=== PATIENT | female | born 1980 | race Caucasian/White ===

== ENCOUNTER 2020-09-23 11:29 | Emergency (ER) | payer SELFPAY ==
[2020-09-23 11:35] VITALS: BP 126/92; PULSE 103; RESP 16; TEMP 36.8; O2SAT 98; BMI 27.3
--- NOTE | 2020-09-23 11:41 | XRR_ITS ---
PROCEDURE INFORMATION: Exam: XR Chest, 1 View Exam date and time: 09/23/2020 11:42 AM Age: 39 years old Clinical indication: Other: Overdose; Additional info: Hypoxia TECHNIQUE: Imaging protocol: XR of the chest Views: 1 view. COMPARISON: No relevant prior studies available. FINDINGS: Lungs: Unremarkable. No consolidation. Pleural space: Unremarkable. No pleural effusion. No pneumothorax. Heart/Mediastinum: Unremarkable. No cardiomegaly. Bones/joints: Unremarkable. XR/XR chest 1V portable [id number] IMPRESSION: No acute findings.
--- NOTE | 2020-09-23 11:43 | ED_ITS ---
HPI - Overdose General: Chief Complaint: Overdose Stated Complaint: HEROIN OVERDOSE Time Seen by Provider: 09/23/20 11:32 History of Present Illness: HPI Narrative: 39-year-old patient [place]. She had evidently been wandering. Upon first responders arrival, she became essentially nonresponsive, turned blue, and stopped spontaneous respirations. She was bagged by first responders until EMS got there. First responders gave 4 mg of intranasal Narcan, and by the time EMS arrived, she began to arouse spontaneously. She required no further oxygen after becoming alert. Vital signs were stable. She did complain of some nausea which was resolved with Zofran in route. She essentially has no complaints currently. This is not the first time she has used, but she claims this is the first time she has had to be revived from overdose. Substance use was heroin she states. She also states she had 2 vodka shooters this morning. complaint: accidental overdose Onset (ago): hour(s) Review of Systems Const: Denies: fever(s) or chills Eyes: Denies: blurry vision ENMT: Denies: odynophagia, swelling of lips/tongue or sinus pain Card: Denies: chest pain, palpitations or irregular heart rhythm Resp: Denies: dyspnea, productive cough, non-productive cough or wheezing GI: Reports: nausea; Denies: abdominal pain or vomiting : Denies: dysuria or hematuria Musc: Denies: neck pain, back pain or joint warmth Skin/Breast: Denies: rash or erythema Neuro: Denies: headache(s), dizziness, vertigo or seizure-like activity Psych: Denies: anxiety Physical Exam Const: GENERAL APPEARANCE: well developed ORIENTATION/CONSCIOUSNESS: Yes oriented to person, Yes oriented to place and Yes oriented to time HENMT: COMMON NORMALS: normocephalic, external ears normal and Normal external nose present HEAD & SCALP: normocephalic FACE & SINUS: normal facial exam NOSE: Normal external nose present and No nasal discharge present EXTERNAL EAR: Yes external ears normal MOUTH: tongue normal TEETH & GINGIVA: no abnormal tooth and associated gingiva THROAT: posterior oropharynx normal; no peritonsillar mass Eye: COMMON NORMALS: Equal, round and reactive pupils present, EOMs intact bilaterally and conjunctivae normal EYELID: eyelids normal CONJUNCTIVA: Yes conjunctivae normal PUPIL: Yes Equal, round and reactive pupils present Neck/C-Spine: GENERAL: No tracheal deviation Chest: COMMONS NORMALS: normal inspection of the chest CHEST: No tenderness Resp: COMMON NORMALS: clear to auscultation bilaterally EFFORT & INSPECTION: No tachypneic, No respiratory distress, No retractions, No uses accessory muscles and No tracheal deviation AUSCULTATION: clear to auscultation bilaterally, no rhonchi, no wheezes and lung sounds not diminished Cardio: COMMON NORMALS: regular rate and regular rhythm RATE: regular rate RHYTHM: regular rhythm HEART SOUNDS: no murmurs PERIPHERAL PULSES: radial pulses present GI: INSPECTION: No abdominal distension AUSCULTATION: No Hyperactive bowel sounds present and No Hypoactive bowel sounds present PALPATION: No Guarding due to palpation present (GI) and No Rigid due to palpation PERCUSSION: no dullness to percussion and no tympanic to percussion Neuro: SENSORIUM/ORIENTATION: Yes oriented to person, Yes oriented to place and Yes oriented to time Psych: COMMON NORMALS: mental status grossly normal Skin: COMMON NORMALS: no rashes or lesions noted GENERAL SKIN EXAM: no rashes or lesions noted Course Vital Signs: Vital signs: Vital Signs Temperature 98.2 F 09/23/20 11:35 Pulse Rate 115 H 09/23/20 12:40 Respiratory Rate 27 H 09/23/20 12:40 Blood Pressure 137/91 09/23/20 12:40 Pulse Oximetry 100 09/23/20 12:40 MDM - Overdose MDM Narrative: Medical decision making narrative: 39-year-old female who presented after heroin overdose. She is awake alert and talking at this point. Her vital signs were stable. Labs were drawn, and she was getting some IV fluid. She had a visitor coming, and she eloped from the ER with the visitor without completion of her service. In fact, she left with the IV in her arm. This of course is of great concern considering she came in with a heroin overdose. We have called the local police department, and ask them to go and check on her, and make sure that the IV has been removed appropriately. She was also positive for amphetamines on the drug screen. She obviously eloped before she had a chance to sign AMA papers, and before it could be explained to her why she should not leave. Lab Data: Labs: Lab Results 09/23/20 09/23/20 09/23/20 Range/Units 12:25 12:25 12:25 WBC Corrected WBC RBC Hgb Hct MCV MCH MCHC RDW Plt Count MPV Gran % Neut % (Auto) Lymph % (Auto) Baldwin % (Auto) Eos % (Auto) Baso % (Auto) Neut # (Auto) Lymph # (Auto) Baldwin # (Auto) Eos # (Auto) Baso # (Auto) Absolute Gran (aut o) Nucleated RBC % (a uto) Nucleated RBCs # Sodium (136-145) mmol/L Potassium (3.5-5.1) mmol/L Chloride (98-107) mmol/L Carbon Dioxide (22-29) mmol/L Anion Gap (5-19) BUN (6-20) mg/dL Creatinine (0.5-0.9) mg/dL GFR Calculation (90-130) mL/min Glucose (65-115) mg/dL Total Bilirubin (0.15-1.2) mg/dL Alkaline Phosphata se (35-105) IU/L Total Protein (6.6-8.7) g/dL Albumin (3.5-5.2) g/dL Globulin (1.3-4.6) g/dL HCG, Qual Negative (Negative) Urine Color Yellow (Yellow) Urine Appearance Cloudy (CLEAR) Urine pH 6.0 (5-7) Ur Specific Gravit y 1.015 (1.005-1.030) Urine Protein 1+ H (Negative) Urine Glucose (UA) Norm (Normal) Urine Ketones Negative (Negative) Urine Blood 2+ H (Negative) Urine Nitrate Negative (Negative) Urine Bilirubin Neg (Negative) Urine Urobilinogen 1 H (Negative) mg/dL Ur Leukocyte Lyn ase Negative (Negative) Urine RBC 5-10 H (0-2) /hpf Urine WBC 10-15 H (0-5) /hpf Ur Squamous Epith Cells 0-4 H (0-5) /hpf Amorphous Sediment Not Reportable Urine Bacteria 3+ H (NONE) /hpf Urine Mucus Trace /hpf Urine Opiates Scre en Positive H (Negative) ng/mL Ur Barbiturates Sc reen Negative (Negative) ng/mL Ur Phencyclidine S crn Negative (Negative) ng/mL Ur Amphetamines Sc reen Positive H (Negative) ng/mL U Benzodiazepines Scrn Negative (Negative) ng/mL Urine Cocaine Scre en Negative (Negative) ng/mL U Marijuana (THC) Screen Negative (Negative) ng/mL 09/23/20 09/23/20 Range/Units 12:35 12:35 WBC Cancelled Corrected WBC Cancelled RBC Cancelled Hgb Cancelled Hct Cancelled MCV Cancelled MCH Cancelled MCHC Cancelled RDW Cancelled Plt Count Cancelled MPV Cancelled Gran % Cancelled Neut % (Auto) Cancelled Lymph % (Auto) Cancelled Baldwin % (Auto) Cancelled Eos % (Auto) Cancelled Baso % (Auto) Cancelled Neut # (Auto) Cancelled Lymph # (Auto) Cancelled Baldwin # (Auto) Cancelled Eos # (Auto) Cancelled Baso # (Auto) Cancelled Absolute Gran (aut o) Cancelled Nucleated RBC % (a uto) Cancelled Nucleated RBCs # Cancelled Sodium 138 (136-145) mmol/L Potassium 4.0 (3.5-5.1) mmol/L Chloride 104 (98-107) mmol/L Carbon Dioxide 23 (22-29) mmol/L Anion Gap 15.0 (5-19) BUN 8 (6-20) mg/dL Creatinine 0.6 (0.5-0.9) mg/dL GFR Calculation 111.3 (90-130) mL/min Glucose 90 (65-115) mg/dL Total Bilirubin 0.2 (0.15-1.2) mg/dL Alkaline Phosphata se 67 (35-105) IU/L Total Protein 7.1 (6.6-8.7) g/dL Albumin 3.5 (3.5-5.2) g/dL Globulin 3.6 (1.3-4.6) g/dL HCG, Qual (Negative) Urine Color (Yellow) Urine Appearance (CLEAR) Urine pH (5-7) Ur Specific Gravit y (1.005-1.030) Urine Protein (Negative) Urine Glucose (UA) (Normal) Urine Ketones (Negative) Urine Blood (Negative) Urine Nitrate (Negative) Urine Bilirubin (Negative) Urine Urobilinogen (Negative) mg/dL Ur Leukocyte Lyn ase (Negative) Urine RBC (0-2) /hpf Urine WBC (0-5) /hpf Ur Squamous Epith Cells (0-5) /hpf Amorphous Sediment Urine Bacteria (NONE) /hpf Urine Mucus /hpf Urine Opiates Scre en (Negative) ng/mL Ur Barbiturates Sc reen (Negative) ng/mL Ur Phencyclidine S crn (Negative) ng/mL Ur Amphetamines Sc reen (Negative) ng/mL U Benzodiazepines Scrn (Negative) ng/mL Urine Cocaine Scre en (Negative) ng/mL U Marijuana (THC) Screen (Negative) ng/mL Discharge Plan Discharge Patient Disposition: Left Against Medical Advice Clinical Impression: Drug overdose Qualifiers: Encounter type: initial encounter Injury intent: accidental or unintentional Qualified Code(s): T50.901A - Poisoning by unspecified drugs, medicaments and biological substances, accidental (unintentional), initial encounter Condition: Stable Coding Level of Care Code ED [employer] Administrator for Denis Benjamin Exam Comprehensive
[2020-09-23] MEDS: sodium chloride 0.9% 1,000 ML 999 ML IV (12:38)
[2020-09-23 12:40] VITALS: BP 137/91; PULSE 115; RESP 27; O2SAT 100
[2020-09-23 12:48] LABS: Add Urine Microscopic? YES; Bilirubin Urine Neg (Negative); Blood Urine 2+ (Negative); Glucose Urine UA Norm (Normal); HCG Qualitative Urine. Negative (Negative); Ketones Urine Negative (Negative); Leukocyte Esterase Urine Negative (Negative); Nitrate Urine Negative (Negative); Protein Urine 1+ (Negative); Specific Gravity, Urine 1.015 (1.005-1.030); Urine Appearance Cloudy (CLEAR); Urine Color Yellow (Yellow); Urobilinogen Urine 1 mg/dL (Negative)
[2020-09-23 12:55] LABS: Add Urine Culture? Yes; Bacteria Urine 3+ /hpf; Mucus Urine TRACE /hpf; Squamous Epithelial Cell Urine 0-4 /hpf (0-5)
[2020-09-23 13:09] LABS: Amphetamines Screen Urine Positive (Negative); Barbiturates Screen Urine Negative (Negative); Benzodiazepines Screen Urine Negative (Negative); Cocaine Screen Urine Negative (Negative); Opiate Screen Urine Positive (Negative); PCP Screen Urine Negative (Negative); THC Screen Urine Negative (Negative)
--- NOTE | 2020-09-23 13:13 | PC.NURSE ---
WENT TO DRAW BLOOD FOR LABS, PT IS GONE FROM THE ROOM. CARDIAC LEADS AND BP CUFF ARE ON THE BED. PT HAS IV STILL IN HER ARM. CHECKED BATHROOMS IN THE DEPARTMENT, UNABLE TO FIND PATIENT. WILL CONTACT PD IN [place]
[2020-09-23 13:27] LABS: Alanine Aminotransferase 34 U/L (0-33); Albumin Level 3.5 g/dL (3.5-5.2); Alcohol Level 23 mg/dL (0-10); Alkaline Phosphatase 67 IU/L (35-105); Aspartate Amino Transferase 37 U/L (0-32); Blood Urea Nitrogen 8 mg/dL (6-20); Carbon Dioxide 23 mmol/L (22-29); Chloride 104 mmol/L (98-107); Creatinine Clr Calc Pharmacy 118.0064; Globulin 3.6 g/dL (1.3-4.6); Glomerular Filtration Rate 111.3 mL/min (90-130); Glucose 90 mg/dL (65-115); Osmolality Calculated 284 mOsm/kg (285-295); Sodium 138 mmol/L (136-145); Total Bilirubin 0.2 mg/dL (0.15-1.2); Total Protein 7.1 g/dL (6.6-8.7)
[2020-09-23 13:45] LABS: Acetaminophen < 5.0 ug/mL (10-30); Salicylate < 0.3 mg/dL (3-10)
--- NOTE | 2020-09-23 14:03 | PC.NURSE ---
Lab called at approx 1300 to say that pt blood draw had clots and needed redrawn, this nurse went into pt room and found it empty, all monitoring removed. Dr Purvis and primary nurse notified, search of ED yielded no pt. Security was contacted to review the tapes as pt still believed to have IV in her arm. Pt seen exiting the hospital by surgery at approx 1253. [facility] police department contacted.
[2020-09-23 14:14] LABS: Calcium 8.7 mg/dL (8.5-10.5)
== END 2020-09-23 14:09 | disposition left against medical advice (07) ==
PROVIDERS: Emergency Provider Emergency Medicine
DX: T40.1X1A Poisoning by heroin, accidental (unintentional), initial encounter (principal); T50.901A Poisoning by unspecified drugs, medicaments and biological substances, accidental (unintentional), initial encounter; Z53.21 Procedure and treatment not carried out due to patient leaving prior to being seen by health care provider
CPT/HCPCS: 12345; 71045; 80053; 80306; 80307; 81001; 81025; 85025; 87077; 87086; 87186; 96360; 99282; 99283; J7030